=== PATIENT | female | born 2000 | race African-American/Black ===

== ENCOUNTER → 2021-06-30 01:15 | Observation (INO) ==
[2021-06-29 23:42] VITALS: BP 130/85; PULSE 110; TEMP 99
[2021-06-29 23:55] LABS: Bilirubin,Urine Negative (Negative); Blood,Urine Negative (Negative); Clarity,Urine Clear (Clear); Color,Urine Other (Yellow); Glucose,Urine (UA) Normal (Normal); Ketones,Urine Negative (Negative); Leukocyte Esterase,Urine Negative (Negative); Nitrite,Urine Negative (Negative); Protein,Urine Negative (Neg-Trace); Specific Gravity,Urine 1.014 (1.010-1.025); Urobilinogen,Urine Normal (Normal)
[2021-06-30 00:42] LABS: Amphetamine Screen,Urine Negative ng/mL (Cutoff=1000); Barbiturate Screen,Urine Negative ng/mL (Cutoff=200); Benzodiazepines Screen,Urine Negative ng/mL (Cutoff=200); Cannabinoid Screen,Urine Negative ng/mL (Cutoff = 50); Cocaine Screen,Urine Negative ng/mL (Cutoff= 300); Opiate Screen,Urine Negative ng/mL (Cutoff=300); Phencyclidine Screen,Urine Negative ng/mL (Cutoff=25)
[2021-06-30 02:28] LABS: Candida DNA Not Detected (Not Detect); Gardnerella DNA Not Detected (Not Detect); Trichomonas DNA Not Detected (Not Detect)
== END | disposition home or self-care (01) ==
LOC: 1NENULAB
PROVIDERS: ADMIT Advanced Practice Midwife; ATTEND Advanced Practice Midwife

== ENCOUNTER 2021-07-05 08:08 | Inpatient (IN) ==
[~2021-07-05 08:08] MED LIST: EPHEDrine 50 MG/ML VIAL IVP PRN; Epidural Premix (fent/bupiv) 110 ML EP SCH; Famotidine 20 MG/2 ML VIAL IVP PRN; Lidocaine 1% 20 ML MDV INFILT PRN; Metoclopramide 10 MG/2 ML VIAL IVP PRN; Naloxone 0.4 MG/ML INJ IVP PRN; Ondansetron 4 MG/2 ML VIAL IVP PRN; Ringers Solution, Lactated 1,000 ML ONE
[2021-07-05] MEDS ORDERED: Ringers Solution, Lactated 1,000 ML ONE (08:22)
[2021-07-05 08:29] LABS: Basophils % 0.2 %; Eosinophils # 0.1 K/mcL (0.0-0.6); Eosinophils % 0.3 %; Hematocrit 32.5 % (35.3-44.9); Hemoglobin 10.5 g/dL (11.5-15.4); Immature Granulocytes % 0.7 % (0-4); Lymphocytes # 1.9 K/mcL (0.6-4.6); Lymphocytes % 12.8 %; Mean Corpuscular HGB Conc 32.3 g/dL (31.6-35.5); Mean Corpuscular Hemoglobin 30.2 pg (28.0-33.3); Mean Corpuscular Volume 93.4 fL (83.0-100.0); Mean Platelet Volume 11.3 fL (9.4-12.4); Monocytes # 1.6 K/mcL (0.0-1.3); Monocytes % 10.7 %; Neutrophils # 11.3 K/mcL (1.6-8.9); Nucleated Red Blood Cells 0.1 /100 WBC (0); Platelet Count 246 K/mcL (140-400); Red Blood Count 3.48 M/mcL (3.82-4.97); Red Cell Distribution Width 13.7 % (11.5-14.5); Segmented Neutrophils % 75.3 %
[2021-07-05] MEDS ORDERED: *HR* Morphine Sulfate/PF 10 MG/10 ML AMPUL ONE (08:29)
[2021-07-05] MEDS ORDERED: *HR* FentaNYL (PF) 100 MCG/2 ML VIAL ONE (08:30)
[2021-07-05] MEDS ORDERED: *HR* Midazolam HCl 2 MG/2 ML VIAL ONE (08:30)
[2021-07-05] MEDS ORDERED: Ketorolac 30 MG/ML VIAL ONE (08:30)
[2021-07-05] MEDS ORDERED: Ondansetron 4 MG/2 ML VIAL ONE (08:30)
[2021-07-05] MEDS ORDERED: *HR* Oxytocin 10 UNIT/ML VIAL ONE (08:30)
[2021-07-05] MEDS ORDERED: *HR* Phenylephrine 10 MG/ML VIAL ONE (08:31)
[2021-07-05] MEDS ORDERED: CeFAZolin 2,000 MG/120 ML BAG IVPB ONE (08:32)
[2021-07-05 08:34] LABS: Creatinine,Urine 139 mg/dL
[2021-07-05 08:46] LABS: Alanine Aminotransferase 16 Units/L (7-52); Aspartate Amino Transferase 19 Units/L (13-39); BUN/Creatinine Ratio 21 (6-26); Blood Urea Nitrogen 14 mg/dL (6-20); Lactate Dehydrogenase 162 Units/L (140-271); Uric Acid 4.2 mg/dL (2.3-7.6); eGFR For African Americans > 60 (> 60); eGFR For Non-African Americans > 60 (> 60)
[2021-07-05] MEDS ORDERED: *HR* Succinylcholine 200 MG/10 ML VIAL IVP ONE (08:52)
[2021-07-05] MEDS ORDERED: *HR* FentaNYL (PF) 250 MCG/5 ML VIAL ONE (09:01)
[2021-07-05] MEDS ORDERED: Acetaminophen IV 1,000 MG/100 ML BAG IVPB ONE (09:03)
[2021-07-05 09:07] LABS: INR 0.9; Prothrombin Time 10.2 Seconds (9.4-12.1)
[2021-07-05 09:09] LABS: Activated Partial Thrombo Time 27.6 Seconds (26.0-36.0)
[2021-07-05] MEDS ORDERED: Ropivacaine/PF 0.2% 20 ML VIAL ONE ×2 (09:13→09:14)
[2021-07-05] MEDS ORDERED: Lidocaine -MPF 2% 5 ML VIAL ONE ×2 (09:20→09:38)
[2021-07-05] MEDS ORDERED: *HR* Labetalol 20 MG/4 ML SYRINGE IVP ONE (10:16)
[2021-07-05] MEDS ORDERED: Acetaminophen IV 1,000 MG/100 ML BAG IVPB PRN (10:29)
[2021-07-05] MEDS ORDERED: Promethazine 6.25 MG in Water for inj. (sterile) 20 ML IVPB PRN (10:29)
[2021-07-05] MEDS ORDERED: *HR* Labetalol 20 MG/4 ML SYRINGE IVP PRN (10:29)
[2021-07-05] MEDS ORDERED: *HR* HYDROmorphone PF 0.5 MG/0.5 ML SYRINGE IVP PRN ×2 (10:29→11:14)
[2021-07-05 10:50] LABS: Amphetamine Screen,Urine Negative ng/mL (Cutoff=1000); Barbiturate Screen,Urine Negative ng/mL (Cutoff=200); Benzodiazepines Screen,Urine Negative ng/mL (Cutoff=200); Cannabinoid Screen,Urine Positive ng/mL (Cutoff = 50); Cocaine Screen,Urine Negative ng/mL (Cutoff= 300); Opiate Screen,Urine Negative ng/mL (Cutoff=300); Phencyclidine Screen,Urine Negative ng/mL (Cutoff=25)
[2021-07-05 11:17] LABS: Influenza A PCR Negative (Negative); Influenza B PCR Negative (Negative); Resp. Syncytial Virus PCR Negative (Negative)
[2021-07-05 11:20] LABS: SARS-CoV-2 by PCR (In House) Negative (Negative)
[2021-07-05] MEDS ORDERED: Ondansetron 4 MG/2 ML VIAL IVP PRN (12:42)
[2021-07-05] MEDS ORDERED: Ringers Solution, Lactated 1,000 ML IVC SCH (12:42)
[2021-07-05] MEDS ORDERED: Simethicone 80 MG TAB.CHEW PO PRN (12:42)
[2021-07-05] MEDS ORDERED: Metoclopramide 10 MG/2 ML VIAL IVP PRN (12:42)
[2021-07-05] MEDS ORDERED: Oxytocin 20 units/ LR 1000 mL 20 UNIT/1,000 ML BAG IVC SCH (12:42)
[2021-07-05] MEDS ORDERED: Rho Immune Globulin 1,500 UNIT SYRINGE IM ONE (12:42)
[2021-07-05] MEDS ORDERED: Ibuprofen 600 MG TABLET PO SCH ×2 (12:42→16:00)
[2021-07-05] MEDS: *HR* OxyCODONE Immed Rel 5 MG TABLET PO PRN ×2 (12:54→18:42)
[2021-07-05] MEDS: Ibuprofen 600 MG TABLET PO SCH ×2 (14:37→20:28)
[2021-07-05] MEDS: Acetaminophen 325 MG TABLET PO SCH ×2 (14:37→20:28)
[2021-07-05] MEDS: metroNIDAZOLE 500 MG TABLET PO SCH (20:27)
[2021-07-05] MEDS: cephALEXin 500 MG CAPSULE PO SCH (20:28)
[2021-07-06] MEDS: *HR* OxyCODONE Immed Rel 5 MG TABLET PO PRN ×4 (00:25→19:49)
[2021-07-06] MEDS: Ibuprofen 600 MG TABLET PO SCH ×3 (04:28→23:07)
[2021-07-06] MEDS: Acetaminophen 325 MG TABLET PO SCH ×3 (04:28→19:46)
[2021-07-06 04:56] LABS: Basophils % 0.1 %; Immature Granulocytes % 0.8 % (0-4)
[2021-07-06 04:58] LABS: Hematocrit 22.9 % (35.3-44.9); Hemoglobin 7.5 g/dL (11.5-15.4); Lymphocytes % 5.8 %; Mean Corpuscular HGB Conc 32.8 g/dL (31.6-35.5); Mean Corpuscular Hemoglobin 30.5 pg (28.0-33.3); Mean Corpuscular Volume 93.1 fL (83.0-100.0); Mean Platelet Volume 11.2 fL (9.4-12.4); Monocytes # 2.1 K/mcL (0.0-1.3); Monocytes % 8.4 %; Neutrophils # 21.1 K/mcL (1.6-8.9); Platelet Count 224 K/mcL (140-400); Red Blood Count 2.46 M/mcL (3.82-4.97); Red Cell Distribution Width 13.7 % (11.5-14.5); Segmented Neutrophils % 84.9 %; White Blood Count 24.9 K/mcL (4.3-11.1)
[2021-07-06 05:00] LABS: Lymphocytes # 1.4 K/mcL (0.6-4.6)
[2021-07-06 05:04] VITALS: O2SAT 96
[2021-07-06 05:10] LABS: Platelet Estimate Normal (Normal); Polychromasia 1+ (Not Present)
[2021-07-06] MEDS: metroNIDAZOLE 500 MG TABLET PO SCH ×3 (08:21→19:46)
[2021-07-06] MEDS: Prenatal Vit/FA 1 EACH TABLET PO SCH (08:21)
[2021-07-06] MEDS: cephALEXin 500 MG CAPSULE PO SCH ×3 (08:21→19:46)
[2021-07-07] MEDS: Acetaminophen 325 MG TABLET PO SCH (02:44)
[2021-07-07] MEDS: *HR* OxyCODONE Immed Rel 5 MG TABLET PO PRN ×2 (02:44→08:09)
[2021-07-07 04:48] LABS: Basophils # 0.1 K/mcL (0.0-0.2); Basophils % 0.3 %; Eosinophils # 0.1 K/mcL (0.0-0.6); Eosinophils % 0.4 %; Hematocrit 23.3 % (35.3-44.9); Hemoglobin 7.2 g/dL (11.5-15.4); Immature Granulocytes % 0.9 % (0-4); Lymphocytes % 14.4 %; Mean Corpuscular HGB Conc 30.9 g/dL (31.6-35.5); Mean Corpuscular Hemoglobin 29.9 pg (28.0-33.3); Mean Corpuscular Volume 96.7 fL (83.0-100.0); Mean Platelet Volume 10.9 fL (9.4-12.4); Monocytes # 1.7 K/mcL (0.0-1.3); Monocytes % 8.1 %; Neutrophils # 15.7 K/mcL (1.6-8.9); Platelet Count 205 K/mcL (140-400); Red Blood Count 2.41 M/mcL (3.82-4.97); Red Cell Distribution Width 14.2 % (11.5-14.5); Segmented Neutrophils % 75.9 %; White Blood Count 20.6 K/mcL (4.3-11.1)
[2021-07-07 06:53] VITALS: BP 120/65; PULSE 99; TEMP 97.7
[2021-07-07] MEDS: cephALEXin 500 MG CAPSULE PO SCH (08:09)
[2021-07-07] MEDS: Ibuprofen 600 MG TABLET PO SCH (08:09)
[2021-07-07] MEDS: Prenatal Vit/FA 1 EACH TABLET PO SCH (08:09)
[2021-07-07] MEDS: metroNIDAZOLE 500 MG TABLET PO SCH (08:10)
== END 2021-07-07 13:02 | disposition home or self-care (01) | DRG 540 ==
LOC: 1NENULAB → 1NENUOBS 12:40
PROVIDERS: ADMIT Obstetrics & Gynecology; ATTEND Obstetrics & Gynecology